=== PATIENT | female | born 1980 | race Caucasian/White ===

== ENCOUNTER → 2016-07-26 | Outpatient (CLI) | payer BC ==
[~2016-07-26] MED LIST: ACET-749 PO; MTR600X PO; OMEG10007 PO; OXYC2.5T4 PO; PRENTAB26 PO
[2016-07-26 17:54] LABS: GTGD 50 Grams
[2016-07-28 14:36] LABS: AFP CONCENTRATION 51.7 NG/ML; AFP MULTIPLE OF MEDIAN 1.54; AFPTS GESTATIONAL AGE 16.4 WEEKS; AFPTS INSULIN DEP DIABETIC? NO; AFPTS MATERNAL WT 155 LBS; ALPHA-FETOPROTEIN RACE CAUCASIAN=W; EDD DETERMINED BY ULTRASOUND; HISTORY OF NTD NO; REPEAT SAMPLE? NO
== END | disposition home or self-care (01) ==
LOC: C.LAB1850 16:13
PROVIDERS: ATTEND Obstetrics & Gynecology
DX: O09.521 Supervision of elderly multigravida, first trimester (principal)

== ENCOUNTER → 2016-10-17 | Outpatient (CLI) | payer BC ==
[2016-10-17 17:42] LABS: GTGD 50 Grams; HEMATOCRIT 32.2 % (37-47)
== END | disposition home or self-care (01) ==
LOC: C.LAB1850 15:48
PROVIDERS: ATTEND Obstetrics & Gynecology
DX: O09.523 Supervision of elderly multigravida, third trimester (principal); Z3A.00 Weeks of gestation of pregnancy not specified

== ENCOUNTER → 2016-10-17 | Outpatient (CLI) | payer BC ==
[2016-10-17 18:17] LABS: URINE APPEARANCE CLEAR (CLEAR); URINE BILIRUBIN NEG (NEG); URINE COLOR YELLOW; URINE EPITHELIAL CELL AUTO >30 /lpf (0-5); URINE NITRITE NEG (NEG); URINE PH 6.5 (4.5-7.5); URINE SPECIFIC GRAVITY 1.016 (1.000-1.030); UROBILINOGEN NEG (NEG)
[2016-10-17 18:19] LABS: MANUAL MICROSCOPIC REQUIRED? NO; REVIEW REQ? NO
== END | disposition home or self-care (01) ==
LOC: C.LABSPEC 17:47
PROVIDERS: ATTEND Obstetrics & Gynecology
DX: O09.523 Supervision of elderly multigravida, third trimester (principal); Z3A.00 Weeks of gestation of pregnancy not specified

== ENCOUNTER → 2016-11-11 | Outpatient (CLI) | payer BC | END | disposition home or self-care (01) | LOC: C.LAB 07:09 | PROVIDERS: ATTEND Obstetrics & Gynecology | DX: O28.9 Unspecified abnormal findings on antenatal screening of mother (principal); Z3A.00 Weeks of gestation of pregnancy not specified ==

== ENCOUNTER → 2016-12-14 | Outpatient (CLI) | payer BC | END | disposition home or self-care (01) | LOC: C.LABSPEC 17:45 | PROVIDERS: ATTEND Obstetrics & Gynecology | DX: O09.523 Supervision of elderly multigravida, third trimester (principal) ==

== ENCOUNTER 2016-12-28 08:24 | Outpatient (CLI) | payer BC ==
[~2016-12-28 08:24] MED LIST changes: -ACET-749 PO; -MTR600X PO; -OMEG10007 PO; -OXYC2.5T4 PO
[2017-03-28] MEDS ORDERED: OXYC2.5T4 PO (11:49)
== END 2016-12-28 09:25 | disposition home or self-care (01) ==
LOC: C.LD 08:24 → C.OPB 08:24 → EDSTATUS 01-07 08:38
PROVIDERS: ATTEND Obstetrics & Gynecology
DX: O62.9 Abnormality of forces of labor, unspecified (principal); O09.523 Supervision of elderly multigravida, third trimester; Z3A.38 38 weeks gestation of pregnancy

== ENCOUNTER 2017-01-04 06:17 | Inpatient (IN) | payer BC ==
[~2017-01-04] VITALS: Ht 160 cm; Wt 81.4 kg
[2017-01-04] MEDS ORDERED: LACTATED RINGER'S 1000ML 1,000 ML IV SCH (07:01)
[2017-01-04] MEDS ORDERED: LACTATED RINGER'S 1000ML 1,000 ML IV PRN (07:01)
[2017-01-04] MEDS ORDERED: OMEG10007 PO (07:07)
[2017-01-04 07:25] LABS: MEAN CELL VOLUME 83.3 fL (80-100); MEAN CORPUSCULAR HEMOGLOBIN 28.2 pg (25-34); MEAN CORPUSCULAR HGB CONC 33.9 g/dl (32-36); MEAN PLATELET VOLUME 10.7 fL (7.4-10.4); PLATELET COUNT 220 K/uL (130-400); RED BLOOD COUNT 4.32 M/uL (4.2-5.4)
[2017-01-04 07:50] VITALS: Ht 160 cm; Wt 81.4 kg
[2017-01-04] MEDS ORDERED: BUPIVACAINE 0.25% 30 ML VIAL ONE (08:10)
[2017-01-04] MEDS ORDERED: FENTANYL 2MCG/ML ROPIV 1.25MG/ML 100ML BAG EPI ONE (08:10)
[2017-01-04] MEDS ORDERED: EpHEDrine SULFATE INJ 50 MG/ML AMP ONE (08:10)
[2017-01-04] MEDS ORDERED: FENTANYL CITRATE INJ 50 MCG/1 ML 2 ML VIAL ONE (08:11)
[2017-01-04] MEDS ORDERED: NALOXONE HCL INJ 1 MG in SODIUM CHLORIDE 0.9% 1000ML 1,000 ML IV PRN (08:27)
[2017-01-04] MEDS ORDERED: LACTATED RINGER'S 1000ML 500 ML IV PRN ×2 (08:27→12:45)
[2017-01-04] MEDS ORDERED: EpHEDrine SULFATE INJ 50 MG/ML AMP IV PRN (08:30)
[2017-01-04] MEDS ORDERED: DiphenhydrAMINE HCL 50 MG/ML VIAL IV PRN (08:30)
[2017-01-04] MEDS ORDERED: NALOXONE HCL INJ 0.4 MG/1 ML VIAL/CARP IV PRN (08:30)
[2017-01-04] MEDS ORDERED: ONDANSETRON INJ 2 MG/ML 2 ML VIAL IV PRN (08:30)
[2017-01-04] MEDS ORDERED: FENTANYL 2MCG/ML ROPIV 1.25MG/ML 100ML BAG EPI PRN (08:30)
[2017-01-04] MEDS ORDERED: NALBUPHINE HCL INJ 10 MG/ML AMP IV PRN (08:30)
[2017-01-04] MEDS ORDERED: OXYTOCIN 30 UNITS/500ML NSS IV PRN ×2 (12:45→16:15)
[2017-01-04] MEDS ORDERED: NURSING VERBAL MED ORDER ONE (14:45)
[2017-01-04] MEDS ORDERED: SUPERCREAM 0.870 % 15GM JAR EXT PRN (16:15)
[2017-01-04] MEDS ORDERED: HYDROCORTISONE ACETATE 25 MG SUPP PR PRN (16:15)
[2017-01-04] MEDS ORDERED: BENZOCAINE 20% AER SPR 82.5 GM CAN EXT PRN (16:15)
[2017-01-04] MEDS ORDERED: ACETAMINOPHEN 325 MG TAB PO PRN (16:15)
[2017-01-04] MEDS ORDERED: DIPHTHERIA/TETANUS/PERTUSSIS 0.5 ML SYR/VIAL IM. ONE (16:15)
[2017-01-04] MEDS ORDERED: ACETAMINOPHEN/CODEINE 300/30MG TAB PO PRN (16:15)
[2017-01-04] MEDS ORDERED: LANOLIN OINT EXT PRN ×2 (16:15)
[2017-01-04] MEDS ORDERED: OXYCODONE/ACETAMINOPHEN 5-325 TAB PO PRN (16:15)
--- NOTE | 2017-01-04 16:18 | [facility] Operative Report ---
Operative Report Operative Date Jan 04, 2017. Pre-Operative Diagnosis Persistent decelerations in the second stage of labor Post-Operative Diagnosis same Procedure(s) Performed Low vacuum-assisted delivery Patient had persistent D cells for approximately 8-10 minutes in the 80 bpm range in the second stage of pushing. This did not respond to oxygenation is her second baby and she is not making rapid progress pushing. Position STEPH station +2 cm. Bladder was recently drained within 30 minutes. I recommended to the patient because of the prolonged decelerations vacuum assistance she agreed. Vacuum was applied over the course of 3 contractions with 2 total pop WAS delivered today baby's head without difficulty. A right mediolateral episiotomy was also performed as the baby gave the impression of being somewhat larger. Gentle traction on the anterior shoulder along with Regi maneuver and flattening of the head of the mother allow delivery without difficulty and without excessive force. Live vigorous male infant. Cord clamped and cut cord gases obtained cord blood obtained placenta removed with gentle traction right mediolateral episiotomy repair with 3-0 Vicryl sponge and instrument counts correct estimated blood loss 300 mL rectal exam negative for sutures or defects Surgeon Frida Findings +2 station Disposition L&D I attest to the content of the Intraoperative Record and any orders documented therein. Any exceptions are noted below.
--- NOTE | 2017-01-04 16:38 | Medical Student: [facility] ---
Medical Student Delivery Note Lisa is a 36 year old female who presented today with contractions at 39.4 weeks GA. Upon dilation to 10 cm, patient pushed to a +2 cm station. heart monitor indicated decels that did not respond to oxygenation. Lisa agreed to attempt a vacuum-assisted delivery. Vacuum assistance was applied for three contractions. A right mediolateral episiotomy was performed as the baby appeared to be large. During the third contraction, with gentle traction on the anterior shoulder, Lisa delivered a live male infant at 1549. Apgars 8/9. No nuchal cord present. The cord was clamped and cut. Nose and mouth were suctioned and the was placed on patient's abdomen. Subsequently he spontaneously began to cry. Repair of right mediolateral episiotomy occurred. Placenta was then delivered with gentle traction. Cervix and rectum were intact. Rectal exam revealed no defects or sutures. Hemostasis occurred via massage of the uterus and IV pitocin. EBL = 300cc. Mother and child are doing well .
--- NOTE | 2017-01-04 16:44 | Anesthesia Procedure Note ---
Anesthesia Epidural Removal Nt Date & Time Jan 04, 2017 at 16:43 Vital Signs Pain Intensity: 0.0 Notes Mental Status: alert / awake / arousable, participated in evaluation Nausea / Vomiting: adequately controlled Pain: adequately controlled Airway Patency, RR, SpO2: stable & adequate BP & HR: stable & adequate Hydration State: stable & adequate Neuraxial Anesthesia: was administered, sensory block is resolving Anesthetic Complications: no major complications apparent, pt satisfied with anesthetic care Epidural: removed without complications, with tip intact
[2017-01-04] MEDS: IBUPROFEN 600 MG TAB PO PRN (16:54)
[2017-01-04 20:25] VITALS: BP 104/71; PULSE 90; TEMP 36.4; O2SAT 98
[2017-01-04] MEDS: ACETAMINOPHEN/CODEINE 300/30MG TAB PO PRN (20:32)
[2017-01-04] MEDS: DOCUSATE SODIUM 100 MG CAP PO SCH (20:33)
[2017-01-05 00:05] VITALS: BP 108/74; PULSE 91; TEMP 36.9
[2017-01-05 04:30] VITALS: BP 112/80; PULSE 87; TEMP 36.8
[2017-01-05] MEDS: IBUPROFEN 600 MG TAB PO PRN ×3 (04:33→20:13)
[2017-01-05 06:50] LABS: HEMATOCRIT 30.2 % (37-47)
--- NOTE | 2017-01-05 07:04 | Progress Note ---
Subjective Jan 05, 2017. Subjective conversation w/ patient, physical exam, lab review Ambulation: ambulating normally Voiding: no voiding problems Diet Tolerance: Regular Diet Lochia: Moderate Objective Vital Signs Date Time Temp Pulse Resp B/P (MAP) Pulse Ox O2 Delivery O2 Flow Rate FiO2 01/05/17 04:30 36.8 87 18 112/80 (91) Room Air 01/05/17 00:05 36.9 91 18 108/74 (85) Room Air 01/05/17 00:05 Room Air 01/04/17 20:25 36.4 90 18 104/71 (82) 98 Room Air 01/04/17 20:25 Room Air Physical Exam General Appearance: WELL-APPEARING Abdomen: non tender Extremities: no calf tenderness Laboratory Results Last 24 Hours Test 01/04/17 07:13 01/05/17 06:15 White Blood Count 13.50 K/uL Red Blood Count 4.32 M/uL Hemoglobin 12.2 g/dL 10.0 g/dL Hematocrit 36.0 % 30.2 % Mean Corpuscular Volume 83.3 fL Mean Corpuscular Hemoglobin 28.2 pg Mean Corpuscular Hemoglobin Concent 33.9 g/dl RDW Standard Deviation 40.4 fL RDW Coefficient of Variation 13.3 % Platelet Count 220 K/uL Mean Platelet Volume 10.7 fL Assessment and Plan Post- Day#: 1 Continue Routine Care: adiel
[2017-01-05] MEDS: DOCUSATE SODIUM 100 MG CAP PO SCH ×2 (09:07→20:13)
[2017-01-05] MEDS: PRENATAL VITAMIN TAB PO SCH (09:07)
[2017-01-05] MEDS: ACETAMINOPHEN/CODEINE 300/30MG TAB PO PRN ×3 (09:10→20:15)
[2017-01-05 09:35] VITALS: BP 117/72; PULSE 101; TEMP 36.9; O2SAT 98
[2017-01-05 12:36] VITALS: BP 110/69; PULSE 88; TEMP 37; O2SAT 97
[2017-01-05 16:25] VITALS: BP 112/72; PULSE 94; TEMP 36.8
[2017-01-05] MEDS ORDERED: BISACODYL 5 MG TABEC PO SCH (20:00)
[2017-01-06 00:15] VITALS: BP 96/60; PULSE 83; TEMP 36.6; O2SAT 98
[2017-01-06] MEDS: ACETAMINOPHEN/CODEINE 300/30MG TAB PO PRN ×2 (00:31→12:08)
[2017-01-06] MEDS: IBUPROFEN 600 MG TAB PO PRN ×3 (00:31→12:46)
[2017-01-06 06:47] LABS: MEAN CELL VOLUME 85.4 fL (80-100); MEAN CORPUSCULAR HEMOGLOBIN 27.6 pg (25-34); MEAN CORPUSCULAR HGB CONC 32.3 g/dl (32-36); MEAN PLATELET VOLUME 9.9 fL (7.4-10.4); PLATELET COUNT 220 K/uL (130-400); WHITE BLOOD COUNT 14.42 K/uL (4.8-10.8)
[2017-01-06] MEDS ORDERED: BISACODYL 10 MG SUPP PR PRN (07:00)
--- NOTE | 2017-01-06 08:16 | Progress Note ---
Subjective Jan 06, 2017. Subjective conversation w/ patient (kaylan suh), physical exam Voiding: no voiding problems Feeding Type: Breast Feeding Objective Vital Signs Date Time Temp Pulse Resp B/P (MAP) Pulse Ox O2 Delivery O2 Flow Rate FiO2 01/06/17 00:15 36.6 83 18 96/60 (72) 98 Room Air 01/06/17 00:15 Room Air 01/05/17 16:25 Room Air 01/05/17 16:25 36.8 94 18 112/72 (85) Room Air 01/05/17 12:36 37.0 88 18 110/69 (83) 97 Room Air 01/05/17 09:35 98 Room Air 01/05/17 09:35 36.9 101 16 117/72 (87) 98 Room Air Physical Exam General Appearance: WELL-APPEARING Fundus: Firm, Non-Tender Extremities: no calf tenderness Laboratory Results Last 24 Hours Test 01/06/17 06:33 White Blood Count 14.42 K/uL Red Blood Count 4.10 M/uL Hemoglobin 11.3 g/dL Hematocrit 35.0 % Mean Corpuscular Volume 85.4 fL Mean Corpuscular Hemoglobin 27.6 pg Mean Corpuscular Hemoglobin Concent 32.3 g/dl RDW Standard Deviation 42.8 fL RDW Coefficient of Variation 13.8 % Platelet Count 220 K/uL Mean Platelet Volume 9.9 fL Assessment and Plan Post- Day#: 2 Continue Routine Care: - patient bothered by significant tailbone pain - discussed strategies for dealing with pain at home - will send home with Motrin/Tylenol #3 - instructions given - f/u in 6 weeks
[2017-01-06] MEDS ORDERED: ACET-749 PO (08:17)
[2017-01-06] MEDS ORDERED: MTR600X PO (08:17)
--- NOTE | 2017-01-06 08:18 | Discharge Instructions ---
Discharge Instructions Date of Service Jan 06, 2017. Admission Reason for Admission: Spontaneous Rupture Of Membranes Discharge Discharge Diagnosis / Problem: same Discharge Goals Goal(s): Routine recovery after delivery Medications Continue Dispensed Medications: supercream, dermaplast Activity Recommendations Activity Limitations: as noted below . Instructions / Follow-Up Instructions / Follow-Up ACTIVITY RECOMMENDATIONS: * Gradual return to full activity over the next 2-3 weeks. * No lifting - nothing heavier than baby over the next 2-3 weeks. * Do not engage in vigorous exercise, sexual activity or sports until cleared by your physician. * Do not drive or operate any motorized equipment until cleared by your physician. * You may shower/bathe daily. MEDICATIONS: For discomfort or pain, you may use Acetaminophen (Tylenol), Ibuprofen (Advil), or Naproxen (Aleve) following the package directions. For constipation you may use Colace following the package directions. BREAST CARE: If you are not breast feeding: * Wear a supportive bra 24 hours a day for one to two weeks. * Avoid stimulating your breasts and nipples as much as possible during the first few weeks after delivery. * When taking a shower, have the warm water hit your back, not breasts. * When your breasts feel full, apply ice packs. Usually three to four times a day helps ease the discomfort. * Take a mild pain medication (Tylenol / Motrin) when you are uncomfortable. If breast feeding: * Use breast milk to lubricate nipples. Lansinoh cream may be used for sore nipples. You do not need to remove cream prior to breast feeding. If using a different brand of cream, check the label for directions regarding removal of cream prior to nursing. * Wear a supportive bra. * If having problems with breasts or breast feeding, call a leasing consultant or your health care provider. EPISIOTOMY CARE: After delivery, if you have an episiotomy (stitches), the following steps will ease discomfort and aid healing. * For the first 24 hours after delivery, place ice packs next to your episiotomy to help reduce swelling. * After the first 24 hour-period, sitz baths, either portable or in the tub, are suggested. A shower with a shower arm sprayed over the episiotomy may be comforting. * Ebony care should be done after each voiding and bowel movement. Squirt warm water from a plastic bottle over the perineum (region of the body between the anus and urinary opening) and pat dry. * Use Dermoplast to ease discomfort. Shake container. [place] directly over the episiotomy. Place a Tucks on a clean sanitary pad next to your episiotomy. SPECIAL CARE INSTRUCTIONS: When you are discharged from the hospital, it is important for you to follow the instructions listed below: * During the first week at home, you should be able to care for yourself and your baby. In addition, the usual light household activities are encouraged. * Limit your activities to the way you feel. Do not try to clean the house or move furniture. Be sensible. * If you actively engage in sports and have done so up until the time of your delivery, you may resume these activities as soon as you feel able. This may take up to one month or even longer. Use good judgment. * Continue to take your vitamins for at least six weeks after the of your baby. * Your diet need not be limited unless you were on a special diet before your delivery. Breast-feeding mothers need around 2500 calories per day and at least 64-80 ounces of fluid per day (8 to 10 glasses). * You should eat foods from the four major food groups. Crash diets or fad diets are to be avoided. Eating lean meats, fresh fruits and vegetables, low-fat dairy products, high fiber foods and a regular exercise program, will help you get back to your pre- weight without putting your health at risk. * Constipation is sometimes a problem after delivery. Take a mild laxative as needed. If breast feeding, Milk of Magnesia is acceptable to use. You may use a suppository or Fleets enema if no episiotomy. * A daily shower or tub bath is suggested. Be sure to thoroughly and gently dry the perineum. * A bloody vaginal discharge will usually continue until around four weeks post . A small amount of bleeding may continue for as long as six weeks. Vaginal discharge changes from the bright red bleeding after delivery to pink then brownish and finally yellowish-pink before becoming white and disappearing. * Bleeding may increase with activity. Your first period may come in 4-8 weeks. If you are breast feeding, your period may be delayed even longer. * [place] (sex) can begin whenever both you and your partner feel comfortable and do not have any form of genital infection. It is recommended that you wait at least six weeks for internal and external healing to occur. If you have questions, please talk to your health care practitioner. A condom should be used to prevent infection and . * Foreplay, gentle intercourse and lubrication is very important the first several times to prevent pain. A water-based lubricant such as K-Y jelly or Astroglide may be used. * If you have RH negative blood and your baby is RH positive, you will receive RHOGAM by injection prior to discharge. The nurse will give you a card to keep with you that has the date and place that you received RHOGAM after delivery. * During your care, you had a Rubella screen done to check for the presence of rubella antibodies in your blood. If your test was negative, you will receive a Rubella vaccine prior to discharge. This vaccine may cause a fever, soreness at the injection site and flu-like symptoms. If these symptoms persist, notify your health care practitioner. is not advised for one month after a Rubella vaccine. * Verbalizes understanding of car seat law as reviewed with patient nursing. * Car Seat hand-out given and reviewed with patient by nursing. * Shaken baby information reviewed with patient by nursing. Call you doctor if: * Heavy bleeding (saturating several pads an hour) or passing clots the size of your fist. * A fever >101 degrees F (38.3 degrees C) on two occasions four hours apart and /or chills. * Unusual pain in the pelvic or vaginal areas. * "Baby Blues" lasting longer than two weeks. If you have any questions or concerns, call your health care practitioner at . FOLLOW UP VISIT: * Please call the office at to schedule a 6 week examination. It is important you keep this appointment. It is important for you to make arrangements for either yearly or twice yearly check-ups thereafter. Current Hospital Diet Patient's current hospital diet: Regular OB Diet Discharge Diet Recommended Diet: Regular OB Diet Pending Studies Studies pending at discharge: no Medical Emergencies . Who to Call and When: Medical Emergencies: If at any time you feel your situation is an emergency, please call 911 immediately. . Non-Emergent Contact Non-Emergency issues call your: Search Marketing Coordinator Call Non-Emergent contact if: temperature is above 100.5 . . "Provider Documentation" section prepared by Zay Mcgee. . VTE Core Measure Inpt VTE Proph given/why not?: Treatment not indicated [place] Drug Monitoring Program Search Results: patient reviewed within database, no issues identified
[2017-01-06 08:40] VITALS: BP 102/67; PULSE 77; TEMP 36.5; O2SAT 100
[2017-01-06] MEDS: PRENATAL VITAMIN TAB PO SCH (08:46)
[2017-01-06] MEDS: DOCUSATE SODIUM 100 MG CAP PO SCH (08:46)
[2017-01-06 12:30] VITALS: BP_DIAS 67; PULSE 77; TEMP 36.5
--- NOTE | 2017-01-10 07:54 | Discharge Summary ---
Discharge Summary Date of Service Jan 10, 2017. Discharge Summary Patient required an operative vaginal dlivery. Her course in hospital was uncomplicated By PPD #2 she met criteria. Was ambulating, passing flatus. Minimal bleeding. O/E: No ext pain or tenderness. Minimal bleeding Uterus firm, non tender. A+P: Met criteria in January 06, 2017. Home. ARIAS
[2017-03-28] MEDS ORDERED: OXYC2.5T4 PO (11:49)
== END 2017-01-06 13:00 | disposition home or self-care (01) | DRG 775 ==
LOC: C.OPB 06:17 → C.LD 06:18 → C.OPB 07:03 → C.OBG 19:51
PROVIDERS: ADMIT Obstetrics & Gynecology; ATTEND Obstetrics & Gynecology
PROC: 0W8NXZZ Division of Female Perineum, External Approach (ICD-10-PCS; principal; 2017-01-04)
PROC: 10D07Z6 Extraction of Products of Conception, Vacuum, Via Natural or Artificial Opening (ICD-10-PCS; principal; 2017-01-04)
DX: O76 Abnormality in fetal heart rate and rhythm complicating labor and delivery (principal); Z3A.39 39 weeks gestation of pregnancy; Z37.0 Single live birth

== ENCOUNTER → 2017-03-28 | Day surgery (SDC) | payer BC ==
[2017-02-22 13:48] VITALS: Ht 162.6 cm; Wt 70.5 kg
[~2017-03-28] VITALS: Ht 162.6 cm; Wt 70.5 kg
[~2017-03-28] MED LIST changes: +ATROPINE SULFATE 0.1 MG/ML 5ML SYR IV PRN; +BRIMONIDINE TART 0.2% OP SOLN PER DROP CHARGE ONE; +BUPIVACAINE 0.5 % 5 MG/1 ML MPF 30ML VIAL ONE; +DEXAMETHASONE SOD INJ 4 MG/ML VIAL ONE; +EpHEDrine SULFATE INJ 50 MG/ML AMP IV PRN; +EpINEphrine INJ 1MG/ML AMP 1 MG/ML AMP ONE; +FENTANYL CITRATE INJ 50 MCG/1 ML 2 ML VIAL ONE; +GLYCOPYRROLATE INJ 0.2 MG/ML VIAL ONE; +IBUPROFEN 600 MG TAB PO PRN; +KETOROLAC TROMETHAMINE 30 MG/ML VIAL IV. PRN; +KETOROLAC TROMETHAMINE 30 MG/ML VIAL ONE; +LACTATED RINGER'S 1000ML 1,000 ML IV SCH; +LIDOCAINE 4% OP SOLN DROP CHARGE ONE; +LIDOCAINE HCL 1% MPF 2 ML VIAL ONE; +LIDOCAINE HCL 2% 2 ML VIAL (20MG/ML) ONE; +MIDAZOLAM HCL 1 MG/ML 2ML VIAL ONE; +MOXIFLOXACIN OPH SOLN PER DROP CHARGE ONE; +NEOSTIGMINE METHYLSULFATE 5 MG/5 ML SYR ONE; +ONDANSETRON INJ 2 MG/ML 2 ML VIAL IV PRN; +ONDANSETRON INJ 2 MG/ML 2 ML VIAL ONE; +OXYC2.5T4 PO; +OXYCODONE/ACETAMINOPHEN 5-325 TAB PO PRN; +POVIDONE-IODINE OP SOLN 30 ML BTL ONE; -PRENTAB26 PO; +PROMETHAZINE HCL INJ 25 MG in SODIUM CHLORIDE 0.9% 50ML 50 ML IV PRN; +PROPOFOL IV EMULSION 10 MG/ML 20 ML VIAL IV ONE; +ROCURONIUM BROMIDE 10 MG/ML 5 ML VIAL IV ONE; +SCOPOLAMINE 1.5 MG TDSY TD ONE; +SODIUM CHLORIDE 0.9% 1000ML 1,000 ML IV SCH; +TOBRAMYCIN/DEXAMETHASONE OPH OINT PER APPLN CHARGE ONE
--- NOTE | 2017-03-28 11:40 | History & Physical Bridge - [place] ---
H&P Re-Evaluation Bridge Note: I have examined the patient, reviewed the History & Physical and in the interval since the performance of the History & Physical I have noted the following changes of clinical significance: No changes noted
--- NOTE | 2017-03-28 11:48 | Discharge Instructions ---
Discharge Instructions Date of Service Mar 28, 2017. Admission Reason for Admission: Encounter For Female Sterilization Discharge Discharge Diagnosis / Problem: tubal ligation Discharge Goals Goal(s): Routine recovery after surgery Activity Recommendations Activity Limitations: per Instructions/Follow-up section . Instructions / Follow-Up Instructions / Follow-Up ACTIVITY RECOMMENDATIONS: * Rest the first 2-3 days. You should be back to your normal activity levels by day 3. * No heavy lifting for 2 weeks. * No intercourse, tampons or douching for 1-2 weeks. * You may shower the next day. * Do not drive anytime that you are taking narcotic pain medicines. RETURN TO SCHOOL/WORK: * May return to school or work after 2-3 days. DIET: Nausea may occur in the immediate post-operative period. If so, take clear liquids such as tea, bouillon, apple juice until all nausea has subsided, then resume usual diet. MEDICATIONS: Resume previous medications unless instructed otherwise by your surgeon. Ibuprofen 200mg 2-3 tablets every 4-6 hours as needed -- OR -- Aleve 2 tablets every 8-12 hours as needed for post-operative discomfort Medications are over the counter. Tylenol may be used if above medications are contraindicated or not preferred. Medication should be taken with food or milk. Do not take on an empty stomach. SPECIAL CARE INSTRUCTIONS: * Check temperature twice daily for one week. report any elevation over 101 degrees. * You may experience some vagina spotting and/or bleeding. This is normal for 1 -2 weeks and should not be heavier than a normal period. If it is unusual in amount, call your physician. * Post-operative discomfort may consist of a sore throat, a "bloated" feeling and pain in the shoulders. these are normal symptoms, which usually only last for 2-3 days. * Remove band-aids tomorrow and shower. There is no need to replace band-aids unless there is drainage or discomfort. FOLLOW UP VISIT: Call your doctor's office for a post-operative 2 week visit if not already scheduled. Current Hospital Diet Patient's current hospital diet: Discharge Diet Recommended Diet: Regular Diet Pending Studies Studies pending at discharge: no Medical Emergencies . Who to Call and When: Medical Emergencies: If at any time you feel your situation is an emergency, please call 911 immediately. . Non-Emergent Contact Non-Emergency issues call your: Woods Rider . . "Provider Documentation" section prepared by Yann Galicia. . VTE Core Measure Inpt VTE Proph given/why not?: Treatment not indicated
--- NOTE | 2017-03-28 13:10 | [facility] Post Operative Brief Note ---
Immediate Operative Summary Operative Date Mar 28, 2017. Pre-Operative Diagnosis Desires Sterilization Post-Operative Diagnosis Same Procedure(s) Performed Laparoscopic Tubal Sterilization Surgeon Dr. Galicia Aircraft Launch And Recovery Technician Surgeon(s) None Estimated Blood Loss 5 ml Findings normal pelvis Specimens None Drains None Anesthesia General Complication(s) None Disposition Recovery Room / PACU
[2017-03-28] MEDS: FENTANYL CITRATE INJ 50 MCG/1 ML 2 ML VIAL IV PRN ×2 (13:33→13:43)
--- NOTE | 2017-03-28 14:02 | Anesthesia Progress Nt - [facility] ---
Anesthesia Post Op Note Date & Time Mar 28, 2017 at 14:02 Vital Signs Pain Intensity: 3 Vital Signs Past 12 Hours Date Time Temp Pulse Resp B/P (MAP) Pulse Ox O2 Delivery O2 Flow Rate FiO2 03/28/17 13:57 56 9 100 03/28/17 13:57 56 9 03/28/17 13:56 112/63 03/28/17 13:55 37.3 61 12 112/63 100 Room Air 03/28/17 13:52 51 9 100 03/28/17 13:52 51 9 03/28/17 13:51 104/67 03/28/17 13:47 54 9 03/28/17 13:47 55 9 100 03/28/17 13:46 104/64 03/28/17 13:45 52 6 100 03/28/17 13:45 52 6 03/28/17 13:41 112/67 03/28/17 13:40 54 12 03/28/17 13:40 54 12 100 03/28/17 13:36 108/70 03/28/17 13:35 54 18 03/28/17 13:35 54 18 100 03/28/17 13:34 57 18 100 03/28/17 13:34 57 18 03/28/17 13:34 57 18 03/28/17 13:34 57 18 100 03/28/17 13:31 114/63 03/28/17 13:31 114/63 03/28/17 13:29 56 16 100 03/28/17 13:29 56 16 03/28/17 13:29 56 16 03/28/17 13:29 56 16 100 03/28/17 13:26 109/57 03/28/17 13:26 109/57 03/28/17 13:24 53 14 03/28/17 13:24 53 14 100 03/28/17 13:24 53 14 03/28/17 13:24 53 14 100 03/28/17 13:21 105/55 03/28/17 13:21 105/55 03/28/17 13:20 105/60 03/28/17 13:20 105/60 03/28/17 13:19 36.2 65 16 105/60 100 Diffusion Mask 6 03/28/17 11:07 36.6 77 16 113/65 (81) 97 Room Air Notes Mental Status: alert / awake / arousable, participated in evaluation Pt Amnestic to Procedure: Yes Nausea / Vomiting: adequately controlled Pain: adequately controlled Airway Patency, RR, SpO2: stable & adequate BP & HR: stable & adequate Hydration State: stable & adequate Anesthetic Complications: no major complications apparent
[2017-03-28 14:25] VITALS: BP 116/74; PULSE 64; O2SAT 100
--- NOTE | 2017-03-28 20:26 | OPERATIVE REPORT ---
DATE OF OPERATION: 03/28/2017 PREOPERATIVE DIAGNOSIS: Request permanent sterilization. POSTOPERATIVE DIAGNOSIS: Request permanent sterilization. PROCEDURE: Bilateral tubal ligation with bipolar Kleppinger. SURGEON: Dr. Galicia. ANESTHETIC: General. COMPLICATIONS: None. ESTIMATED BLOOD LOSS: 5 mL. SPECIMENS: None. DISPOSITION: Stable. FINDINGS: Normal pelvis. DESCRIPTION OF PROCEDURE: Lisa was given a general anesthetic, prepped and draped in dorsal lithotomy position in [facility]. Bladder drained, cervical acorn device attached to the cervix via Allis clamp, gloves changed and a subumbilical incision made with scalpel using open Hari technique. We dissected through the subcutaneous fat to the fascia in the midline. Rectus muscle split. Peritoneal cavity was entered without difficulty. Blunt-tipped Hari trocar was placed and then balloon inflated to stabilize the trocar, 3 liters of CO2 gas insufflated. FINDINGS: Upper abdomen normal, no sign of visceral organ injury. Deep Trendelenburg position was then obtained. Pelvis was then visualized, appeared normal. Fallopian tubes were then tracked in the right and left side, all the way to the fimbriated end. Using the operative laparoscope and using the bipolar Kleppinger, coagulated the tube in at least 3 [address] for full thickness coagulation, first on the right then on the left. Care was taken to avoid damage to surrounding structures. At the end of the procedure, pictures taken for documentation. Sponge and instrument counts correct. I attest to the content of the Intraoperative Record and any orders documented therein. Any exception s are noted below.
== END | disposition home or self-care (01) ==
LOC: X.SURG 10:47
PROVIDERS: ATTEND Obstetrics & Gynecology
DX: Z30.2 Encounter for sterilization (principal); Z87.891 Personal history of nicotine dependence

== ENCOUNTER → 2017-06-12 | Outpatient (CLI) | payer BC ==
[~2017-06-12] MED LIST changes: -ATROPINE SULFATE 0.1 MG/ML 5ML SYR IV PRN; -BRIMONIDINE TART 0.2% OP SOLN PER DROP CHARGE ONE; -BUPIVACAINE 0.5 % 5 MG/1 ML MPF 30ML VIAL ONE; -DEXAMETHASONE SOD INJ 4 MG/ML VIAL ONE; -EpHEDrine SULFATE INJ 50 MG/ML AMP IV PRN; -EpINEphrine INJ 1MG/ML AMP 1 MG/ML AMP ONE; -FENTANYL CITRATE INJ 50 MCG/1 ML 2 ML VIAL ONE; -GLYCOPYRROLATE INJ 0.2 MG/ML VIAL ONE; -IBUPROFEN 600 MG TAB PO PRN; -KETOROLAC TROMETHAMINE 30 MG/ML VIAL IV. PRN; -KETOROLAC TROMETHAMINE 30 MG/ML VIAL ONE; -LACTATED RINGER'S 1000ML 1,000 ML IV SCH; -LIDOCAINE 4% OP SOLN DROP CHARGE ONE; -LIDOCAINE HCL 1% MPF 2 ML VIAL ONE; -LIDOCAINE HCL 2% 2 ML VIAL (20MG/ML) ONE; -MIDAZOLAM HCL 1 MG/ML 2ML VIAL ONE; -MOXIFLOXACIN OPH SOLN PER DROP CHARGE ONE; -NEOSTIGMINE METHYLSULFATE 5 MG/5 ML SYR ONE; -ONDANSETRON INJ 2 MG/ML 2 ML VIAL IV PRN; -ONDANSETRON INJ 2 MG/ML 2 ML VIAL ONE; -OXYCODONE/ACETAMINOPHEN 5-325 TAB PO PRN; -POVIDONE-IODINE OP SOLN 30 ML BTL ONE; -PROMETHAZINE HCL INJ 25 MG in SODIUM CHLORIDE 0.9% 50ML 50 ML IV PRN; -PROPOFOL IV EMULSION 10 MG/ML 20 ML VIAL IV ONE; -ROCURONIUM BROMIDE 10 MG/ML 5 ML VIAL IV ONE; -SCOPOLAMINE 1.5 MG TDSY TD ONE; -SODIUM CHLORIDE 0.9% 1000ML 1,000 ML IV SCH; -TOBRAMYCIN/DEXAMETHASONE OPH OINT PER APPLN CHARGE ONE
--- NOTE | 2017-06-12 17:22 | DIAGNOSTIC IMAGING REPORT ---
SACRUM COCCYX MIN 2 VIEWS CLINICAL HISTORY: S32.2XXA Fracture of [id number] Buttock trauma trauma. Pain. COMPARISON STUDY: None FINDINGS: Mild deformity sacrococcygeal junction consistent with old posttraumatic change. No acute bony abnormality. Sacral foramina are symmetric. Nonobstructive bowel pattern. Several pelvic vascular calcifications. IMPRESSION: Findings consistent with old healed fracture of the sacrococcygeal junction. No acute process. The above report was generated using voice recognition software. It may contain grammatical, syntax or spelling errors. Electronically signed by: Micky Weber M.D. 06/12/2017 5:21 PM Dictated Date/Time: 06/12/2017 5:20 PM
== END | disposition home or self-care (01) ==
LOC: C.RAD 16:56
PROVIDERS: ATTEND Internal Medicine
DX: S32.2XXA Fracture of coccyx, initial encounter for closed fracture (principal); S39.92XA Unspecified injury of lower back, initial encounter; X58.XXXA Exposure to other specified factors, initial encounter

== ENCOUNTER → 2017-10-08 | Outpatient (CLI) | payer BC ==
[~2017-10-08] MED LIST changes: -OXYC2.5T4 PO; +RIZA10TA18 PO; +TOPI25TA99 PO
== END | disposition home or self-care (01) ==
LOC: C.LABSPEC 17:56
PROVIDERS: ATTEND Internal Medicine
DX: N39.0 Urinary tract infection, site not specified (principal)

== ENCOUNTER → 2017-10-24 | Outpatient (CLI) | payer BC | END | disposition home or self-care (01) | LOC: C.LABSPEC 11:32 | PROVIDERS: ATTEND Physician Assistant | DX: R10.2 Pelvic and perineal pain (principal) ==

== ENCOUNTER → 2018-02-05 | Outpatient (CLI) | payer BC ==
[~2018-02-05] MED LIST changes: +GADAVIST IV PRN
--- NOTE | 2018-02-05 08:55 | DIAGNOSTIC IMAGING REPORT ---
MRI OF THE BRAIN COMBO CLINICAL HISTORY: Chronic headaches. COMPARISON STUDY: No priors. TECHNIQUE: MRI of the brain was performed utilizing various T1 and T2-weighted sequences in the axial, sagittal, and coronal planes. Contrast-enhanced sequences were acquired following the administration of 6.5 cc of Gadavist. FINDINGS: Brain parenchyma: There are at least 4 tiny foci of T2 signal abnormality scattered throughout the subcortical and periventricular white matter. The brain parenchyma is otherwise normal in appearance. There is no hemorrhage or mass effect. There is no restricted diffusion to suggest acute ischemia. No enhancing mass lesion is identified on the postcontrast images. Lay-white matter differentiation is preserved. No extra-axial fluid collection is seen. The cerebellar tonsils are normal in configuration. Ventricles, sulci, and cisterns: Normal in configuration. Pituitary and sella: Unremarkable. Intracranial vasculature: Normal flow voids are maintained at the skull base. Orbits: The bony orbits are grossly intact. Orbital contents are normal in appearance. Sinuses and mastoids: Clear. Calvarium: Unremarkable. Cervical cord: Partially visualized cervical spinal cord is normal in morphology and signal intensity. IMPRESSION: 1. There is no acute intracranial abnormality. 2. There are at least 4 tiny foci of T2 signal abnormality scattered throughout the subcortical and periventricular white matter. This is a nonspecific finding and has been described with migraine headache. This could also represent mild age advanced arthropathic change or less likely could be seen in the setting of a demyelinating process. Clinical correlation will be essential. Electronically signed by: Shaka Andersen M.D. 02/05/2018 8:53 AM Dictated Date/Time: 02/05/2018 8:47 AM
== END | disposition home or self-care (01) ==
LOC: C.MRIBC 07:42
PROVIDERS: ATTEND Psychiatry & Neurology Neurology
DX: R51 Headache (principal)